=== PATIENT | male | born 1995 | race Caucasian/White ===

== ENCOUNTER 2022-12-24 08:56 | Day surgery (SDC) | payer OTHER ==
[2022-12-18 13:27] VITALS: BMI 25.0
[2022-12-24] MEDS ORDERED: MIDAZOLAM HCL 2 MG/2 ML SINGLE DOSE VIAL ONE (10:58)
[2022-12-24] MEDS ORDERED: BUPIVACAINE HCL/PF 0.5% (5MG/ML) 10 ML VIAL ONE (10:59)
[2022-12-24] MEDS ORDERED: DEXAMETHASONE SOD PHOSPHATE 4 MG/1 ML VIAL ONE ×2 (10:59→13:44)
[2022-12-24] MEDS ORDERED: ONDANSETRON 4 MG/2 ML VIAL ONE ×2 (10:59→13:44)
[2022-12-24] MEDS ORDERED: BUPIVACAINE LIPOSOME/PF (EXPAREL) 266 MG/20 ML VIAL ONE (10:59)
[2022-12-24] MEDS ORDERED: FENTANYL CITRATE/PF 50 MCG/ML VIAL ONE ×3 (10:59→14:24)
[2022-12-24] MEDS ORDERED: PROPOFOL 20 ML ONE (11:26)
[2022-12-24] MEDS ORDERED: ceFAZolin SODIUM 1 GM VIAL ONE (11:29)
[2022-12-24] MEDS ORDERED: TRANEXAMIC ACID 1000 MG/10 ML VIAL ONE (11:30)
[2022-12-24] MEDS ORDERED: ONDANSETRON 4 MG/2 ML VIAL IVPUSH PRN (14:10)
[2022-12-24] MEDS ORDERED: oxyCODONE HCL 5 MG TABLET PO PRN ×2 (14:10)
[2022-12-24] MEDS ORDERED: LACTATED RINGERS SOLUTION 1,000 ML IV SCH (14:15)
[2022-12-24] MEDS ORDERED: KETOROLAC TROMETHAMINE 30 MG/1 ML VIAL IVPUSH ONE (14:26)
[2022-12-24] MEDS ORDERED: ACETAMINOPHEN 1000 MG/100 ML BAG IVPB ONE (14:26)
[2022-12-24] MEDS ORDERED: diazePAM 5 MG TABLET ONE (14:43)
[2022-12-24] MEDS ORDERED: diazePAM 5 MG TABLET PO ONE (15:08)
[2022-12-24 15:32] VITALS: RESP 16; TEMP 98.4
[2022-12-24 16:22] VITALS: BP 124/95; PULSE 77
== END 2022-12-24 15:55 | disposition home or self-care (01) ==
LOC: FASU 08:56
PROVIDERS: ATTEND Orthopaedic Surgery
PROC: 0MRP47Z Replacement of Left Knee Bursa and Ligament with Autologous Tissue Substitute, Percutaneous Endoscopic Approach (ICD-10-PCS; principal; 2022-12-24 11:51)
DX: M23.52 Chronic instability of knee, left knee (principal); S83.512A Sprain of anterior cruciate ligament of left knee, initial encounter; X58.XXXA Exposure to other specified factors, initial encounter; Y93.9 Activity, unspecified; Y92.9 Unspecified place or not applicable
CPT/HCPCS: 29888; C1713; 94760